=== PATIENT | female | born 1995 | race Caucasian/White ===

== ENCOUNTER 2019-11-20 18:22 | Emergency (ER) | payer OTHER ==
[~2019-11-20] VITALS: Ht 157.4 cm; Wt 56.7 kg
[2019-11-20 20:18] LABS: BILIRUBIN NEGATIVE (NEGATIVE); BLOOD NEGATIVE (NEGATIVE); CLARITY SL CLOUDY (CLEAR); COLOR YELLOW (YELLOW); GLUCOSE NEGATIVE (NEGATIVE); KETONE TRACE (NEGATIVE); LEUKO ESTERASE NEGATIVE (NEGATIVE); NITRITE NEGATIVE (NEGATIVE); UROBILINOGEN 0.2 E.U./dl (0.2-1.0)
[2019-11-20 20:25] LABS: BACTERIA 3+; EPITHELIAL CELLS TNTC
[2019-11-20] MEDS ORDERED: Motrin,Rufen800 MG PO (22:36)
== END 2019-11-20 22:35 | disposition home or self-care (01) ==
LOC: ED 18:22
PROVIDERS: Emergency Medicine Emergency Medical Services
DX: S00.83XA Contusion of other part of head, initial encounter (principal); S50.11XA Contusion of right forearm, initial encounter; S80.12XA Contusion of left lower leg, initial encounter; V43.52XA Car driver injured in collision with other type car in traffic accident, initial encounter; Y93.89 Activity, other specified; Y92.828 Other wilderness area as the place of occurrence of the external cause; Y99.8 Other external cause status